=== PATIENT | male | born 1965 | race African-American/Black ===

== ENCOUNTER 2023-09-06 14:55 | Emergency (ER) | payer MEDICAID, OTHER ==
[~2023-09-06] VITALS: Ht 182.9 cm; Wt 82.0 kg
[2023-09-06 15:06] VITALS: BP 117/80; PULSE 108; RESP 15; O2SAT 98
== END 2023-09-06 19:11 | disposition home or self-care (01) ==
LOC: ER 14:55
DX: M79.89 Other specified soft tissue disorders (principal); E78.00 Pure hypercholesterolemia, unspecified
CPT/HCPCS: 73600; 73620; 99284; Z7610